=== PATIENT | female | born 1960 ===

== ENCOUNTER 2018-03-31 17:26 | Emergency (ER) | payer OTHER, SELFPAY ==
[2018-03-31 17:36] VITALS: BP 133/90; PULSE 61; RESP 16; TEMP 36.4; O2SAT 95
[2018-03-31 17:46] VITALS: BP 136/76; PULSE 61; RESP 16; TEMP 36.4; O2SAT 95
--- NOTE | 2018-03-31 18:06 | ED_ITS ---
HPI - Fall <ZACH Perez - Last Filed: 03/31/18 22:43> General Chief Complaint: Fall Stated Complaint: Fall / R Knee Pain Time Seen by Provider: 03/31/18 18:01 Source: patient Mode of arrival: EMS Limitations: no limitations History of Present Illness HPI Narrative: 57-year-old female with history of hypertension is a nonsmoker here for complaint of pain to the right knee. She was brought in by ambulance due to the pain to her right knee after ground level fall while she was hiking today. She states that her left foot slid forward causing her right foot to fall behind her. She felt a pop right knee as she fell. She denies any direct impact to the right knee that she knows of. She reports increased pain with motion of the right knee. She denies any head injury. No neck pain. She denies any other injuries or concerns at this timeframe. complaint: fall Related Data Previous Rx's Medication Instructions Recorded olanzapine [Zyprexa] 2.5 mg PO QDAY #30 tab 06/11/16 zolpidem 5 mg PO HS #30 tab 03/18/17 zolpidem 5 mg PO HSP PRN #30 tab 03/18/17 hydrochlorothiazide 25 mg tablet 25 mg PO QDAY #30 tab 03/20/18 lamotrigine 100 mg tablet 100 mg PO QDAY #30 tab 03/20/18 lamotrigine 150 mg tablet 150 mg PO QDAY #30 tab 03/20/18 Allergies Allergy/AdvReac Type Severity Reaction Status Date / Time imipramine [IMIPRAMINE] Allergy Intermediate RASH Unverified 07/10/17 12:38 Review of Systems <ZACH Perez - Last Filed: 03/31/18 22:43> Constitutional Denies chills, Denies fever(s), Denies lethargy and Denies weakness Eyes Denies change in vision, Denies eye discharge, Denies irritation and Denies loss of vision ENT Ears, Nose, Mouth, and Throat: Denies change in voice, Denies neck pain and Denies sore throat Cardiovascular Denies chest pain, Denies irregular heart rhythm, Denies lightheadedness, Denies palpitations, Denies dyspnea, Denies dyspnea on exertion and Denies orthopnea Respiratory Denies cough, Denies dyspnea, Denies dyspnea on exertion and Denies wheezing Gastrointestinal Gastrointestinal: Denies abdominal pain, Denies change in bowel habits, Denies diarrhea, Denies nausea and Denies vomiting Genitourinary Denies hematuria, Denies flank pain, Denies urinary incontinence and Denies urinary urgency Musculoskeletal Denies neck pain Comments: Right knee pain Integumentary/Breasts Denies pruritus, Denies erythema, Denies rash and Denies wounds Neurologic Denies confusion, Denies loss of vision and Denies weakness Psychiatric Denies anxiety, Denies confusion, Denies depression, Denies homicidal ideation and Denies suicidal ideation Endocrine Denies palpitations Hematologic/Lymphatic Denies easy bruising Allergic/Immunologic Denies wheezing Exam <ZACH Perez - Last Filed: 03/31/18 22:43> Initial Vital Signs Initial Vital Signs: Vital Signs Temperature 97.6 F 03/31/18 17:36 Pulse Rate 61 03/31/18 17:36 Respiratory Rate 16 03/31/18 17:36 Blood Pressure 133/90 03/31/18 17:36 Pulse Oximetry 95 03/31/18 17:36 Const General: cooperative and well developed Nutritional Appearance: well nourished Orientation: alert, awake, oriented x3 and not confused [facility] Mouth: oral mucosae normal and moist mucous membranes Eyes Conjunctivae: conjunctivae normal Sclera: sclerae normal Pupils: PERRL EOM: EOM intact bilaterally Resp Effort & Inspection: normal respiratory effort, able to speak in complete sentences, no respiratory distress and no use of accessory muscles Auscultation: clear to auscultation bilaterally, no rales, no rhonchi and no wheezes Cardio Rate: regular rate Rhythm: regular rhythm Heart Sounds: no click, no gallops, no murmurs and no rubs Pulses: normal peripheral pulses Skin General: no rashes or lesions noted, No jaundice and No petechiae Neuro General: alert, oriented x3, gait normal and no focal motor deficits Speech: speech normal Extrem Other: Right knee with slight swelling to the anterior portion. No deformities. No ecchymosis. Distal sensation is intact. Distal range of motion is intact. Distal pulses are intact. Negative anterior posterior drawer sign. Negative varus and valgus stress test <Carlota Parsons MD - Last Filed: 04/01/18 02:50> Initial Vital Signs Initial Vital Signs: Vital Signs Temperature 97.6 F 03/31/18 17:36 Pulse Rate 61 03/31/18 17:36 Respiratory Rate 16 03/31/18 17:36 Blood Pressure 133/90 03/31/18 17:36 Pulse Oximetry 95 03/31/18 17:36 Course <ZACH Perez - Last Filed: 03/31/18 22:43> Orders Ordered: ED Orders 03/31/18 19:33 XR knee RT 3V Stat Vital Signs - 8 hr 03/31/18 19:07 03/31/18 21:41 03/31/18 22:01 Temperature 97.4 F L Pulse Rate 64 60 88 Respiratory Rate 18 15 16 Blood Pressure 136/64 Blood Pressure [Left Arm] 126/75 Blood Pressure [Right Arm] 136/64 Pulse Oximetry 99 96 99 <Carlota Parsons MD - Last Filed: 04/01/18 02:50> Orders Ordered: ED Orders 03/31/18 19:33 XR knee RT 3V Stat Vital Signs - 8 hr 03/31/18 19:07 03/31/18 21:41 03/31/18 22:01 Temperature 97.4 F L Pulse Rate 64 60 88 Respiratory Rate 18 15 16 Blood Pressure 136/64 Blood Pressure [Left Arm] 126/75 Blood Pressure [Right Arm] 136/64 Pulse Oximetry 99 96 99 MDM - Fall <ZACH Perez - Last Filed: 03/31/18 22:43> Imaging Data Right knee : Radiologist's impression: [address] [place] [address] XRay Report Signed Patient: Aspen Arroyo MR#: [id number] : 1960 Acct:[id number] Age/Sex: 57 / F Date of Service: 03/31/18 Loc: ED Accession Number: [id number] Procedure: XR knee RT 3V Ordering Provider: Kd Pierce PROCEDURE: XR KNEE RT 3V INDICATIONS: Ground level fall with pain to right knee TECHNIQUE: 3 views of the knee were acquired. COMPARISON: None. FINDINGS: Bones: No fractures or dislocations. No suspicious bony lesions. Soft tissues: No joint effusion. No suspicious soft tissue calcifications. IMPRESSION: No trauma found. 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 Dictated by: Ken Hewitt M.D. on 03/31/2018 at 20:48 Approved by: Ken Hewitt M.D. on 03/31/2018 at 20:48 [facility] Narrative Medical decision making narrative: X-ray the right knee was obtained with no signs of acute fracture or dislocation. She is placed in a knee immobilizer for comfort and support. Along with crutches for nonweightbearing. Follow up with Orthopedics later this week. May need to have MRI of right knee to rule out soft tissue injury. [id number] Tylenol Motrin as needed for any discomfort. For any worsening symptoms return to the emergency room. Discharge Plan Departure Patient Disposition: Home Clinical Impression: Right knee sprain Discharge Date/Time: 03/31/18 22:00 Interventions: ED Discharge Assessment Last Done: 03/31/18 22:01 Instructions: DI for Knee Sprain Activity Restrictions/Additional Instructions: X-ray the right knee was obtained with no signs of acute fracture or dislocation. You have been placed in a knee immobilizer for comfort and support use as directed with crutches for nonweightbearing. Follow up with Orthopedics later this week. May need to have MRI of right knee to rule out soft tissue injury. [id number] Tylenol Motrin as needed for any discomfort. For any worsening symptoms return to the emergency room. Call Orthopedics at number provided to schedule follow-up appointment. Prescriptions: No Action olanzapine [Zyprexa] 2.5 MG tablet 2.5 mg PO QDAY Qty: 30 RF: 3 zolpidem 5 MG tablet 5 mg PO HSP PRNQty: 30 RF: 1 zolpidem 5 MG tablet 5 mg PO HS Qty: 30 RF: 0 hydrochlorothiazide 25 mg tablet 25 mg PO QDAY Qty: 30 RF: 0 lamotrigine [Lamictal] 100 mg tablet 100 mg PO QDAY Qty: 30 RF: 0 lamotrigine 150 mg tablet 150 mg PO QDAY Qty: 30 RF: 0 Referrals: Joseph Elkins MD [Physician] - Marina Bennett DO [Primary Care Provider] -
[2018-03-31 19:07] VITALS: BP 136/64; PULSE 64; RESP 18; O2SAT 99
--- NOTE | 2018-03-31 19:33 | DI.RAD.S_ITS ---
PROCEDURE: XR KNEE RT 3V INDICATIONS: Ground level fall with pain to right knee TECHNIQUE: 3 views of the knee were acquired. COMPARISON: None. FINDINGS: Bones: No fractures or dislocations. No suspicious bony lesions. Soft tissues: No joint effusion. No suspicious soft tissue calcifications. IMPRESSION: No trauma found. 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 Dictated by: Ken Hewitt M.D. on 03/31/2018 at 20:48 Approved by: Ken Hewitt M.D. on 03/31/2018 at 20:48
[2018-03-31 21:41] VITALS: BP 126/75; PULSE 60; RESP 15; O2SAT 96
[2018-03-31 22:01] VITALS: BP 136/64; PULSE 88; RESP 16; TEMP 36.3; O2SAT 99
== END 2018-03-31 22:00 | disposition home or self-care (01) ==
PROVIDERS: Emergency Provider Nurse Practitioner Family; PCP Family Medicine
DX: S83.91XA Sprain of unspecified site of right knee, initial encounter (principal); W19.XXXA Unspecified fall, initial encounter; Y93.01 Activity, walking, marching and hiking
CPT/HCPCS: 73562; 99283

== ENCOUNTER → 2018-08-22 15:32 | Outpatient (CLI) | payer OTHER, SELFPAY ==
--- NOTE | 2018-08-22 15:35 | DI.RAD.S_ITS ---
PROCEDURE: XR CHEST 2V INDICATIONS: wheezing, shortness of breath. TECHNIQUE: 2 views of the chest were acquired. COMPARISON: [facility], , CHEST 2 VIEW, 01/12/2017, 13:21. FINDINGS: Surgical changes and devices: None. Lungs and pleura: Lungs are clear. No pleural effusions or pneumothorax. Mediastinum: Mediastinal contours are normal. Heart size is normal. Bones and chest wall: No suspicious bony abnormalities. Soft tissues appear unremarkable. IMPRESSION: Normal chest. Dictated by: Hetal French M.D. on 08/22/2018 at 16:35 Approved by: Hetal French M.D. on 08/22/2018 at 16:36
== END ==
PROVIDERS: PCP Family Medicine; Visit Provider Family Medicine
DX: R06.02 Shortness of breath (principal); R06.2 Wheezing
CPT/HCPCS: 71046

== ENCOUNTER → 2018-09-23 15:54 | Outpatient (CLI) | payer OTHER, SELFPAY ==
[2018-09-25 14:44] LABS: Fecal Immunochemical Test NOT DETECTED (NOT DETECTED)
== END ==
PROVIDERS: PCP Family Medicine; Visit Provider Family Medicine
DX: Z12.11 Encounter for screening for malignant neoplasm of colon (principal)
CPT/HCPCS: 82274

== ENCOUNTER → 2018-10-01 08:20 | Outpatient (CLI) | payer OTHER, SELFPAY ==
--- NOTE | 2018-10-01 08:20 | DI.MG.S_ITS ---
BILATERAL DIGITAL SCREENING MAMMOGRAM 3D/2D WITH CAD: 10/01/2018 CLINICAL: Routine screening. Comparison is made to exams dated: 06/07/2014 mammogram and 07/04/2010 [facility] There are scattered fibroglandular elements in both breasts. Current study was also evaluated with a Computer Aided Detection (CAD) system. No significant masses, calcifications, or other findings are seen in either breast. There has been no significant interval change. IMPRESSION: NEGATIVE There is no mammographic evidence of malignancy. A 1 year screening mammogram is recommended. This exam was interpreted at Station ID: [id number]. NOTE: For mammograms, a report in lay terms will be sent to the patient. Approximately 15% of breast malignancies will not be visualized mammographically. In the management of a palpable breast mass, a negative mammogram must not discourage biopsy of a clinically suspicious lesion. Electronically Signed By: Jovan benitez/jemima:10/01/2018 10:33:42 letter sent: Normal Exam ACR BI-RADS Category 1: Negative 3341F
== END ==
PROVIDERS: PCP Family Medicine; Visit Provider Family Medicine
DX: Z12.31 Encounter for screening mammogram for malignant neoplasm of breast (principal)
CPT/HCPCS: 77063; 77067

== ENCOUNTER → 2019-01-30 11:20 | Outpatient (CLI) | payer OTHER, SELFPAY ==
[2019-01-30 12:25] LABS: Hemoglobin A1C% w Est Avg Glu 5.4 % (4.0-6.0)
[2019-01-30 12:37] LABS: Alanine Aminotransferase 24 IU/L (<35); Albumin 4.6 g/dL (3.5-5.0); Albumin Globulin Ratio 1.6 (1.0-2.8); Alkaline Phosphatase 127 U/L (38-126); Aspartate Aminotransferase 38 IU/L (14-36); BUN Creatinine Ratio 17.1 (6-22); Blood Urea Nitrogen 12 mg/dL (7-17); Calcium 9.2 mg/dL (8.4-10.2); Carbon Dioxide 30 mmol/L (22-32); Chloride 99 mmol/L (98-107); Estimated Glomerular Filt Rate > 60.0 mL/min (>60); Globulin 2.9 g/dL (1.7-4.1); Glucose 86 mg/dL (70-100); HEMOLYSIS < 15 (0-50); Potassium 3.4 mmol/L (3.4-5.1); Sodium 139 mmol/L (137-145); Total Protein 7.5 g/dL (6.3-8.2)
[2019-01-30 13:04] LABS: TSH w/ Reflex to FT4 2.58 uIU/mL (0.47-4.68)
== END ==
PROVIDERS: PCP Family Medicine; Visit Provider Family Medicine
DX: R63.5 Abnormal weight gain (principal); I10 Essential (primary) hypertension; R73.03 Prediabetes
CPT/HCPCS: 36415; 80053; 83036; 84443

== ENCOUNTER → 2020-02-15 12:21 | Outpatient (CLI) | payer OTHER, SELFPAY ==
[2020-02-15 13:19] LABS: COVID19 -Nasal RAPID Negative (Negative)
== END ==
PROVIDERS: PCP Family Medicine; Visit Provider Physician Assistant
DX: Z11.59 Encounter for screening for other viral diseases (principal)
CPT/HCPCS: 87635

== ENCOUNTER → 2020-02-29 08:22 | Outpatient (CLI) | payer OTHER, SELFPAY ==
[2020-02-29 09:14] LABS: Add Manual Diff / Slide Review NO; Basophils Absolute Auto 0 /uL (0-100); Eosinophils Absolute Auto 200 /uL (0-450); Eosinophils Percent Auto 4.8 % (2-4); Hematocrit 40.7 % (36-46); Hemoglobin 13.3 g/dL (12.0-16.0); Lymphocytes Absolute Auto 1500 /uL (1100-4500); Lymphocytes Percent Auto 33.8 % (25-40); Mean Corpuscular HGB Conc 32.7 % (30-36); Mean Corpuscular Volume 91.7 fL (80-100); Monocytes Absolute Auto 300 /uL (0-900); Monocytes Percent Auto 7.7 % (3-14); Neutrophils Absolute Auto 2400 /uL (1500-7000); Neutrophils Percent Auto 52.7 % (50-75); Platelet Count 226 X10^3/uL (150-400); Red Blood Cell Count 4.44 X10^6/uL (4.0-5.2); Red Cell Distribution Width 12.9 % (11.6-14.8); White Blood Cell Count 4.5 X10^3/uL (4.5-11.0)
[2020-02-29 09:29] LABS: Alanine Aminotransferase 24 IU/L (<35); Albumin Globulin Ratio 1.3 (1.0-2.8); Alkaline Phosphatase 129 U/L (38-126); Aspartate Aminotransferase 35 IU/L (14-36); BUN Creatinine Ratio 13.2 (6-22); Bilirubin Total 0.7 mg/dL (0.2-1.3); Blood Urea Nitrogen 10 mg/dL (7-17); Calcium 9.4 mg/dL (8.4-10.2); Carbon Dioxide 33 mmol/L (22-32); Chloride 104 mmol/L (98-107); Cholesterol 226 mg/dL (140-199); Estimated Glomerular Filt Rate > 60.0 mL/min (>60); Glucose 102 mg/dL (70-100); HDL Cholesterol 90 mg/dL (40-60); HEMOLYSIS < 15 (0-50); LDL Cholesterol Calculated 122 mg/dL (<100); Sodium 138 mmol/L (137-145); Triglycerides 72 mg/dL (35-150)
[2020-02-29 10:27] LABS: Thyroid Stimulating Hormone 3.01 uIU/mL (0.47-4.68)
== END ==
PROVIDERS: PCP Family Medicine; Referring Provider Family Medicine; Visit Provider Family Medicine
DX: E66.3 Overweight (principal); F31.81 Bipolar II disorder; I10 Essential (primary) hypertension
CPT/HCPCS: 36415; 80053; 80061; 84443; 85025

== ENCOUNTER → 2020-06-23 10:40 | Outpatient (CLI) | payer OTHER, SELFPAY ==
--- NOTE | 2020-06-23 10:41 | DI.RAD.S_ITS ---
PROCEDURE: XR CERVICAL SPINE 2V OR 3V INDICATIONS: right hand numbness TECHNIQUE: 3 view(s) of the cervical spine were acquired. COMPARISON: None. FINDINGS: Bones: No fracture. Grade 1 retrolisthesis of C4 on C5. Multilevel degenerative endplate sclerosis and spurring. Diffuse facet arthropathy. Severe narrowing of the C4-C5 and C6-C7 disc space. Soft tissues: No prevertebral soft tissue swelling. IMPRESSION: Multilevel cervical spondylosis and facet arthropathy as above. Grade 1 retrolisthesis of C4 on C5. Dictated by: Regis Barahona M.D. on 06/23/2020 at 12:12 Approved by: Regis Barahona M.D. on 06/23/2020 at 12:21
== END ==
PROVIDERS: PCP Family Medicine; Referring Provider Family Medicine; Visit Provider Family Medicine
DX: M47.22 Other spondylosis with radiculopathy, cervical region (principal); M43.12 Spondylolisthesis, cervical region
CPT/HCPCS: 72040

== ENCOUNTER → 2021-06-09 08:07 | Outpatient (CLI) | payer OTHER, SELFPAY ==
[2021-06-09 09:45] LABS: Add Manual Diff / Slide Review NO; Basophils Absolute Auto 100 /uL (0-100); Basophils Percent Auto 1.2 % (0-2); Eosinophils Absolute Auto 200 /uL (0-450); Eosinophils Percent Auto 4.8 % (2-4); Hematocrit 41.5 % (36-46); Hemoglobin 13.5 g/dL (12.0-16.0); Lymphocytes Absolute Auto 1500 /uL (1100-4500); Lymphocytes Percent Auto 33.4 % (25-40); Mean Corpuscular HGB Conc 32.5 % (30-36); Mean Corpuscular Hemoglobin 29.6 PG (26-34); Mean Corpuscular Volume 91.2 fL (80-100); Monocytes Absolute Auto 400 /uL (0-900); Monocytes Percent Auto 7.9 % (3-14); Neutrophils Absolute Auto 2400 /uL (1500-7000); Neutrophils Percent Auto 52.7 % (50-75); Platelet Count 254 X10^3/uL (150-400); Red Blood Cell Count 4.55 X10^6/uL (4.0-5.2); Red Cell Distribution Width 13.1 % (11.6-14.8); White Blood Cell Count 4.6 X10^3/uL (4.5-11.0)
[2021-06-09 10:00] LABS: Hemoglobin A1C% w Est Avg Glu 5.7 % (4.0-6.0)
[2021-06-09 10:02] LABS: Alanine Aminotransferase 21 IU/L (<35); Albumin 4.5 g/dL (3.5-5.0); Albumin Globulin Ratio 1.4 (1.0-2.8); Alkaline Phosphatase 114 U/L (38-126); Aspartate Aminotransferase 35 IU/L (14-36); BUN Creatinine Ratio 13.4 (6-22); Bilirubin Total 0.9 mg/dL (0.2-1.3); Blood Urea Nitrogen 11 mg/dL (7-17); C-Reactive Protein Quant < 0.5 mg/dL (<1.0); Calcium 9.5 mg/dL (8.4-10.2); Carbon Dioxide 32 mmol/L (22-32); Chloride 100 mmol/L (98-107); Cholesterol 250 mg/dL (140-199); Estimated Glomerular Filt Rate > 60.0 mL/min (>60); Globulin 3.2 g/dL (1.7-4.1); Glucose 97 mg/dL (70-100); HDL Cholesterol 92 mg/dL (40-60); HEMOLYSIS < 15 (0-50); LDL Cholesterol Calculated 143 mg/dL (<100); Potassium 3.6 mmol/L (3.4-5.1); Sodium 138 mmol/L (137-145); Total Protein 7.7 g/dL (6.3-8.2); Triglycerides 76 mg/dL (35-150)
[2021-06-09 10:04] LABS: Rheumatoid Factor < 8.6 IU/mL (<12.0)
[2021-06-09 11:09] LABS: TSH w/ Reflex to FT4 2.88 uIU/mL (0.47-4.68)
== END ==
PROVIDERS: PCP Family Medicine; Referring Provider Family Medicine; Visit Provider Family Medicine
DX: M79.641 Pain in right hand (principal); M79.642 Pain in left hand; Z51.81 Encounter for therapeutic drug level monitoring; I10 Essential (primary) hypertension; Z83.3 Family history of diabetes mellitus; E78.5 Hyperlipidemia, unspecified; R53.83 Other fatigue
CPT/HCPCS: 36415; 80053; 80061; 83036; 84443; 85025; 86140; 86430

== ENCOUNTER → 2021-06-15 09:29 | Outpatient (CLI) | payer OTHER, SELFPAY ==
[2021-06-16 12:09] LABS: Fecal Immunochemical Test Negative (Negative)
== END ==
PROVIDERS: PCP Family Medicine; Referring Provider Family Medicine; Visit Provider Family Medicine
DX: Z12.11 Encounter for screening for malignant neoplasm of colon (principal)
CPT/HCPCS: 82274

== ENCOUNTER → 2022-01-31 15:31 | Outpatient (CLI) | payer OTHER, SELFPAY ==
--- NOTE | 2022-01-31 15:33 | DI.MG.S_ITS ---
BILATERAL DIGITAL SCREENING MAMMOGRAM 3D/2D WITH CAD: 01/31/2022 CLINICAL: Routine screening. Comparison is made to exams dated: 10/01/2018 mammogram - [facility], 06/07/2014 mammogram, and 07/04/2010 mammogram - [facility]. There are scattered areas of fibroglandular density in both breasts (category b / 25%-50% glandular tissue). Current study was also evaluated with a Computer Aided Detection (CAD) system. No significant masses, calcifications, or other findings are seen in either breast. There has been no significant interval change. IMPRESSION: NEGATIVE There is no mammographic evidence of malignancy. A 1 year screening mammogram is recommended. Based on the Tyrer Cuzick model (a risk assessment model) the patient's lifetime risk is 10.1% and her 10 year risk is 3.9%. According to the ACR, ACS, and NCCN guidelines, an annual breast MRI exam along with mammogram is recommended if the patient's lifetime risk is 20% or greater. This exam was interpreted at Station ID: [id number]. NOTE: For mammograms, a report in lay terms will be sent to the patient. Approximately 15% of breast malignancies will not be visualized mammographically. In the management of a palpable breast mass, a negative mammogram must not discourage biopsy of a clinically suspicious lesion. Electronically Signed By: Jossue Lamas M.D., jr/jemima:02/01/2022 14:10:36 letter sent: Normal Exam ACR BI-RADS Category 1: Negative [id number]
== END ==
PROVIDERS: PCP Family Medicine; Referring Provider Family Medicine; Visit Provider Family Medicine
DX: Z12.31 Encounter for screening mammogram for malignant neoplasm of breast (principal)
CPT/HCPCS: 77063; 77067

== ENCOUNTER → 2022-06-19 08:41 | Outpatient (CLI) | payer OTHER, SELFPAY ==
[2022-06-19 10:50] LABS: Alanine Aminotransferase 22 IU/L (<35); Albumin 3.9 g/dL (3.5-5.0); Albumin Globulin Ratio 1.4 (1.0-2.8); Alkaline Phosphatase 141 U/L (38-126); Aspartate Aminotransferase 29 IU/L (14-36); BUN Creatinine Ratio 12.2 (6-22); Bilirubin Total 0.8 mg/dL (0.2-1.3); Blood Urea Nitrogen 9 mg/dL (7-17); Carbon Dioxide 29 mmol/L (22-32); Chloride 100 mmol/L (98-107); Cholesterol 237 mg/dL (140-199); Estimated Glomerular Filt Rate > 60 mL/min (>60); Globulin 2.8 g/dL (1.7-4.1); Glucose 90 mg/dL (70-100); HDL Cholesterol 100 mg/dL (40-60); HEMOLYSIS < 15 (0-50); LDL Cholesterol Calculated 123 mg/dL (<100); Potassium 3.8 mmol/L (3.4-5.1); Sodium 137 mmol/L (137-145); Total Protein 6.7 g/dL (6.3-8.2); Triglycerides 69 mg/dL (35-150)
[2022-06-20 10:43] LABS: Fecal Immunochemical Test Negative (Negative)
== END ==
PROVIDERS: PCP Family Medicine; Referring Provider Family Medicine; Visit Provider Family Medicine
DX: Z12.11 Encounter for screening for malignant neoplasm of colon (principal); I10 Essential (primary) hypertension
CPT/HCPCS: 36415; 80053; 80061; 82274

== ENCOUNTER → 2022-07-06 07:55 | Outpatient (CLI) | payer OTHER, SELFPAY ==
--- NOTE | 2022-07-06 07:57 | DI.US.S_ITS ---
PROCEDURE: US EXTREMELY NONVASC UPPER RT INDICATIONS: RIGHT ELBOW MASS TECHNIQUE: Real-time scanning was performed of the right elbow , with image documentation. COMPARISON: None. FINDINGS: Multiple grayscale color Doppler images of the right posterior elbow at the area of palpable concern were acquired. There is a heterogeneous, hyperechoic mass with internal vascularity measuring 1.6 x 0.5 x 0.9 cm. It is oriented parallel to the skin surface. No evidence to suggest invasion into the underlying osseous structures or musculature. No abnormal fluid collection seen. IMPRESSION: A 1.6 cm hyperechoic, vascular soft tissue mass noted over the posterior aspect of the right elbow. This is nonspecific and etiologies would include both benign and malignant etiologies. Recommend clinical correlation and if indicated, soft tissue MRI could be performed for further assessment. Dictated by: Jovan Bond M.D. on 07/06/2022 at 9:16 Approved by: Jovan Bond M.D. on 07/06/2022 at 9:20
== END ==
PROVIDERS: PCP Family Medicine; Referring Provider Surgery; Visit Provider Surgery
DX: R22.31 Localized swelling, mass and lump, right upper limb (principal)
CPT/HCPCS: 76882

== ENCOUNTER → 2023-04-28 11:32 | Outpatient (CLI) | payer OTHER, SELFPAY ==
--- NOTE | 2023-04-28 11:34 | DI.RAD.S_ITS ---
PROCEDURE: XR RIBS LT MIN 3V W CXR1V INDICATIONS: left lower anterior rib pain after fall TECHNIQUE: 2 views of the ribs were acquired, along with a single view chest. COMPARISON: None. FINDINGS: Surgical changes and devices: None. Bones and chest wall: A marker is placed upon the area of clinical concern. Within this region, no displaced rib fracture or other significant rib abnormality can be seen. No rib fractures are seen elsewhere. No suspicious bony lesions. Age-appropriate bony degenerative changes are seen. Overlying soft tissues appear unremarkable. Lungs and pleura: No pleural effusions or pneumothorax. Lungs appear clear. Mediastinum: The cardiac contours are within normal limits. The aorta demonstrates calcification and tortuosity. IMPRESSION: No displaced rib fracture or pneumothorax. Dictated by: Santos Garcia M.D. on 04/28/2023 at 11:43 Approved by: Santos Garcia M.D. on 04/28/2023 at 11:43
== END ==
PROVIDERS: Referring Provider Physician Assistant; Visit Provider Physician Assistant
DX: R07.81 Pleurodynia (principal)
CPT/HCPCS: 71101

== ENCOUNTER → 2023-07-08 09:22 | Outpatient (CLI) | payer OTHER, SELFPAY ==
[2023-07-08 11:05] LABS: Hemoglobin A1C% w Est Avg Glu 5.5 % (4.0-6.0)
[2023-07-08 11:06] LABS: Alanine Aminotransferase 18 IU/L (<35); Albumin Globulin Ratio 1.3 (1.0-2.8); Alkaline Phosphatase 124 U/L (38-126); Aspartate Aminotransferase 27 IU/L (14-36); BUN Creatinine Ratio 18.9 (6-22); Bilirubin Total 0.9 mg/dL (0.2-1.3); Blood Urea Nitrogen 14 mg/dL (7-17); Calcium 9.7 mg/dL (8.4-10.2); Carbon Dioxide 31 mmol/L (22-32); Chloride 103 mmol/L (98-107); Cholesterol 245 mg/dL (140-199); Estimated Glomerular Filt Rate > 60 mL/min (>60); Glucose 93 mg/dL (80-110); HDL Cholesterol 87 mg/dL (40-60); HEMOLYSIS < 15 (0-50); LDL Cholesterol Calculated 140 mg/dL (<100); Potassium 3.9 mmol/L (3.4-5.1); Sodium 137 mmol/L (137-145); Triglycerides 88 mg/dL (35-150)
== END ==
PROVIDERS: PCP Family Medicine; Referring Provider Family Medicine; Visit Provider Family Medicine
DX: F31.81 Bipolar II disorder (principal); I10 Essential (primary) hypertension; E78.5 Hyperlipidemia, unspecified
CPT/HCPCS: 36415; 80053; 80061; 83036

== ENCOUNTER → 2023-08-30 12:53 | Outpatient (CLI) | payer OTHER, SELFPAY ==
--- NOTE | 2023-08-30 12:53 | DI.US.S_ITS ---
PROCEDURE: US CAROTID DOPPLER BI INDICATIONS: Episode of dysarthria, elevated cholesterol, FH stroke TECHNIQUE: Color and pulse Doppler interrogation was performed of both carotid systems, with image documentation and velocity measurements. COMPARISON: None. FINDINGS: Stenosis calculations are based on SRU (Society of Radiologists in Ultrasound) criteria. Right side: Brachial blood pressure: 113/71 mm Hg. Common carotid artery peak systolic velocity: 88 cm/sec. Internal carotid artery peak systolic velocity: 89 cm/sec. Internal carotid artery end diastolic velocity: 36 cm/sec. External carotid artery peak systolic velocity: 105 cm/sec. ICA/CCA peak systolic ratio: 1.01 . Mistry scale imaging description: No significant atherosclerotic plaques Percent internal carotid artery stenosis: No significant stenosis . Vertebral artery: Flow direction is antegrade. Left side: Brachial blood pressure: 111/69 mm Hg. Common carotid artery peak systolic velocity: 125 cm/sec. Internal carotid artery peak systolic velocity: 88 cm/sec. Internal carotid artery end diastolic velocity: 32 cm/sec. External carotid artery peak systolic velocity: 115 cm/sec. ICA/CCA peak systolic ratio: 0.70 . Mistry scale imaging description: No significant atherosclerotic plaques. Percent internal carotid artery stenosis: No significant stenosis . Vertebral artery: Flow direction is antegrade. IMPRESSION: No significant stenosis of the bilateral internal carotid arteries. Dictated by: Vic Mcbride M.D. on 08/30/2023 at 14:57 Approved by: Vic Mcbride M.D. on 08/30/2023 at 14:59
--- NOTE | 2023-08-30 12:53 | DI.RAD.S_ITS ---
PROCEDURE: XR CERVICAL SPINE 4V OR 5V INDICATIONS: Cervicalgia TECHNIQUE: 5 views of the cervical spine were acquired. COMPARISON: [facility], CR, XR CERVICAL SPINE 2V OR 3V, 06/23/2020, 10:40. FINDINGS: Bones: No fractures or dislocations to the C7 level. Straightening of the normal cervical lordosis. Mild anterolisthesis of C3 on C4 and retrolisthesis of C4 on C5. There are multilevel degenerative changes of the cervical spine with facet and uncovertebral arthropathy, disc height loss with degenerative endplate changes and spurring. This is most severe at C4-C5 and C6-C7. Diffusely decreased osseous mineralization. No suspicious bony lesions. There is limited range of motion between flexion and extension, with preserved bony alignment. Soft tissues: Prevertebral soft tissues are normal in thickness. IMPRESSION: Multilevel degenerative changes of the cervical spine with limited range of motion. This is most severe at C4-C5 and C6-C7. Dictated by: Vic Mcbride M.D. on 08/30/2023 at 13:26 Approved by: Vic Mcbride M.D. on 08/30/2023 at 13:27
== END ==
PROVIDERS: PCP Family Medicine; Referring Provider Physician Assistant Surgical; Visit Provider Physician Assistant Surgical
DX: M47.22 Other spondylosis with radiculopathy, cervical region (principal); M54.2 Cervicalgia; R47.1 Dysarthria and anarthria; E78.5 Hyperlipidemia, unspecified; Z82.3 Family history of stroke
CPT/HCPCS: 72050; 93880

== ENCOUNTER → 2023-11-27 07:59 | Outpatient (CLI) | payer OTHER, SELFPAY ==
[2023-11-27 09:45] LABS: Cholesterol 260 mg/dL (140-199); HDL Cholesterol 83 mg/dL (40-60); LDL Cholesterol Calculated 157 mg/dL (<100); Triglycerides 99 mg/dL (35-150)
== END ==
PROVIDERS: PCP Family Medicine; Referring Provider Family Medicine; Visit Provider Family Medicine
DX: E78.2 Mixed hyperlipidemia (principal)
CPT/HCPCS: 36415; 80061

== ENCOUNTER → 2024-04-02 08:23 | Outpatient (CLI) | payer OTHER, SELFPAY ==
[2024-04-02 09:45] LABS: Cholesterol 181 mg/dL (140-199); Triglycerides 55 mg/dL (35-150)
[2024-04-02 09:55] LABS: HDL Cholesterol 115 mg/dL (40-60); LDL Cholesterol Calculated 55 mg/dL (<100)
== END ==
PROVIDERS: PCP Family Medicine; Referring Provider Family Medicine; Visit Provider Family Medicine
DX: E78.2 Mixed hyperlipidemia (principal)
CPT/HCPCS: 36415; 80061

== ENCOUNTER → 2024-06-22 | Outpatient (CLI) | payer OTHER, SELFPAY ==
--- NOTE | 2024-06-22 17:06 | DI.MG.S_ITS ---
MM screening mammo BI: 06/22/2024. BI-RADS: 1 CLINICAL: 63-year old female for bilateral screening mammogram. Tyrer-Cuzick lifetime risk of 9.0%. No personal or first-degree family history of breast cancer. PRIOR EXAMS 01/31/2022, 10/01/2018. MAMMOGRAPHY TECHNIQUE: 2D and 3D (tomosynthesis) digital mammographic views obtained, with additional images as needed for full coverage. Current study was also evaluated with a Computer Aided Detection (CAD) system. DENSITY B. There are scattered areas of fibroglandular density. MAMMOGRAPHY FINDINGS Bilateral: No suspicious mass, asymmetry, microcalcification, or other abnormality seen. No significant change from comparison. IMPRESSION: * No evidence of malignancy. RECOMMENDATIONS Bilateral * Annual screening mammography. OVERALL ASSESSMENT CATEGORY BI-RADS-1: Negative. The [employer] recommends annual screening mammography beginning at age 40 for women with average risk of breast cancer. ELECTRONICALLY SIGNED: Becca Laguna M.D. on 06/23/2024 at 12:11:14 PM PT Interpreting Station ID: [id number]
== END ==
PROVIDERS: Family Provider Family Medicine; PCP Family Medicine; Referring Provider Family Medicine; Visit Provider Family Medicine
DX: Z12.31 Encounter for screening mammogram for malignant neoplasm of breast (principal)
CPT/HCPCS: 77063; 77067

== ENCOUNTER 2024-06-29 09:00 | Outpatient (RCR) | payer OTHER, SELFPAY ==
--- NOTE | 2024-05-25 18:38 | PT.OIE ---
Current Diagnoses Stiffness of unspecified hip, not elsewhere classified (05/25/24) Unspecified dyspareunia (05/25/24) Abnormal posture (05/25/24) Unspecified urinary incontinence (05/25/24) Past Medical History (Last Updated 04/10/24 @ 17:04 by Emilia Alanis MD) Bipolar II disorder (~2003) Dyspareunia Fibroids Hyperlipidemia Knee pain Postmenopausal atrophic vaginitis Prediabetes Recurrent sinusitis Shoulder pain Urinary leakage Past Surgical History (Last Reviewed 07/04/22 @ 09:36 by Mercedez Garcia RN) Anesthesia History of knee surgery History of repair of ACL History of surgery Tear meniscus knee Visit Care Team Role Provider Type Emilia Alanis MD Attending Provider Physician Family Provider Primary Care Provider Referring Provider Specialty: Family Practice ACADEMIC ASSOCIATE Address: [address] [place] [address], [facility] Fax: Email: [email or web address] Physical Therapy Initial Evaluation PT-OP-A Visit Information Start: 05/24/24 19:28 Freq: Status: Active Protocol: Document 05/25/24 08:00 LRN (Rec: 05/25/24 09:03 LRN [id number]) Out-Patient Physical Therapy Visit Information Visit Information Visit Type Initial Evaluation Visit Start Time 08:15 Visit Stop Time 09:02 Visit Number 1 Evaluation Information Evaluation Date 05/25/24 Precautions Precautions Knee surgeries, (R Quad tendon rupture - 2019 repair). Pelvic instability treated @ [facility] point, Chiropractor treatments - 2019 or 2020 for 6 months rehab. PT-OP-B Current Condition Start: 05/24/24 19:28 Freq: Status: Active Protocol: Document 05/25/24 08:00 LRN (Rec: 05/25/24 09:03 LRN [id number]) Current Condition History of Current Condition Onset Date 9 months ago Current Complaints Urinary leakage with an urge and occasionally with sneeze. History of Current Condition Several months ago onset of incontinence, used to be with sneezing, but now has urgent onset to urinate with leakage getting up in the middle of the night or walking to the bathroom. Her triggers are running water, washing of hands. Pt reports pain with intercourse. Pt moved from [place] 8 yrs ago. She does pilates once a week with online instructors in [place]. States she does a kegels with inhale, and does Urethral, vaginal and anal kegels. Pt is with no children, no pregnancies. Prior Treatments and Tests None. Treatment Goals Patient/Caregiver Goals Pt goals: Hold her urine and quit wearing pads all the time. Personal Factors Other Personal Factors That May Effect Hx of R Quad tendon re- Therapy/Recovery attached, L ACL rpr - in her 30's, arthritis of knees, controlled HBP, does pilates 1x/wk. . PT-OP-C Subjective Start: 05/24/24 19:28 Freq: Status: Active Protocol: Document 05/25/24 08:00 LRN (Rec: 05/25/24 09:03 LRN [id number]) Patient Questionnaires Pelvic Pain and Urgency/Frequency Patient Symptom Scale Pelvic Pain Score 15 OP-PT Pain Assessment Pain Assessment Grid Paper Pain Assessment Grid Completed Yes Location L side of neck Pain Location Details L lateral neck Intensity 1 Scale Used Numeric (0 - 10) PT-OP-I Pelvic Floor Start: 05/24/24 19:28 Freq: Status: Active Protocol: Document 05/25/24 08:00 LRN (Rec: 05/25/24 09:03 LRN [id number]) Pelvic Floor Assessment Urine Pelvic Floor Surgery No Urinary Symptoms Urge Sensation Leakage Cause Sneeze,Urge Other Leakage Causes Small with sneeze. Large if wait too long. Leaks Per Day 0-4 Voiding Frequency every other hour (~8-10x/day) Nocturia 1-2x/night Pads Used In 24 Hours 1 Poise pad Urine Pad Type Panty Liner Bowel Bowel Symptoms Uncontrolled Flatulence Bowel Movement Frequency 1/day Person Stool Chart Comments Type 3,4 Pelvic Clock Pelvic Clock 3-6 Tightness Pelvic Clock 6-9 Tightness Prolapse Urethrocele Grade 2 Perineal Descent Resting Absent Bearing Present Contraction Ability Manual Muscle Testing Left 2 Manual Muscle Testing Right 2 Manual Muscle Testing Anterior 1 Manual Muscle Testing Posterior 2 Muscle Endurance (Seconds) 3 Number of Quick Contractions In 10 5 Seconds Comments Pelvic Floor Comments Weak contraction with slow release. Hyper tonicity 3-9 of PF clock. Pt reporting pain with intercourse. PT-OP-J Posture/Palpation/Skin Start: 05/24/24 19:28 Freq: Status: Active Protocol: Document 05/25/24 08:00 LRN (Rec: 05/25/24 09:03 LRN [id number]) Posture Evaluation Position Standing Thorax Posture Neutral L-Spine Posture Shifted Left Shoulder Posture (L) Elevated Arm Posture (L) Internally Rotated,(R) Internally Rotated Pelvis Posture (R) Rotated Anterior,(L) PSIS Posterior,(L) ASIS Posterior,( R) ASIS Inferior Knee Posture (L) Genu Valgus,(R) Genu Valgus Foot Arch (L) High Arch,(R) High Arch Comments Posture Comments Valgus L>R, R hammertoe, R arch higher than L, head shifted L, Dowagers Hump, Sacrum in extension (flattened ), L innominate in neutral. PT-OP-K Range of Motion Start: 05/24/24 19:28 Freq: Status: Active Protocol: Document 05/25/24 08:00 LRN (Rec: 05/25/24 09:03 LRN [id number]) Lumbar Spine Range of Motion Lumbar Spine Active Degrees Testing Position Standing Flexion 60 Extension 20 Rotation Left 15 Rotation Right 10 Lateral Flexion Left 15 Lateral Flexion Right 10 Hip Goniometric Range of Motion Hip Right Passive Testing Position Supine Internal Rotation 30 External Rotation 30 Left Passive Testing Position Supine Internal Rotation 20 External Rotation 30 PT-OP-M Strength Start: 05/24/24 19:28 Freq: Status: Active Protocol: Document 05/25/24 08:00 LRN (Rec: 05/25/24 09:03 LRN [id number]) Trunk Strength Trunk Manual Muscle Testing Core Stabilization Lacks mildly rotational strength Hip Strength Hip Manual Muscle Testing Right Extension (S1) 3 Fair Comments Strength is 5/5 except as indicated above. Left Extension (S1) 3 Fair External Rotation 4 Good Comments Strength is 5/5 except as indicated above. PT-OP-Q Treatments Start: 05/24/24 19:28 Freq: Status: Active Protocol: Document 05/25/24 08:00 LRN (Rec: 05/25/24 09:03 LRN [id number]) Self-Care/Home Management Treatment Education Other Education Discussed results of evaluation, goals, treatment, and plan of care (POC) with pt , attendance/cx/dns policy; pt agreeable to evaluation, goals, treatment, attendance/ cx/dns policy and POC. Pt educated in use of Bladder Diary and I/S in tracking for 1 week. PT-OP-T Assessment and Plan Start: 05/24/24 19:28 Freq: Status: Active Protocol: Document 05/25/24 08:00 LRN (Rec: 05/25/24 09:03 LRN [id number]) Physical Therapy Assessment Rehab Potential Rehabilitation Potential Good Evaluation Complexity Number of Personal Factors/Comorbidities 1-2 Number of Body Systems Impaired 4 or More Clinical Presentation at Evaluation Evolving Impairments Impairments Activity Tolerance,Posture,ROM ,Strength Other Impairments PF ms tightness. Goals Three Impairment Stress urinary incontinence due to tight PF Short Term Goal (STG) Pt will be able to relax her PF with use of deep breathing and PF stretching (if needed) to decrease pain with intercourse. Longterm Goal (LTG) No urinary leakage with a sneeze. LTG Duration 08/07/24 Two Impairment Urge urinary incontinence at nighttime and w/strong urge Short Term Goal (STG) Pt will be educated in urge deference technique and will be able to maintain continence with a strong urge from triggers of running water or washing hands. STG Duration 06/04/24 Longterm Goal (LTG) Pt will be able to remain continent while walking to the bathroom with an urge and at nighttime to eliminate the use of incontinence pads. LTG Duration 08/07/24 One Impairment Pt lacks appropriate self care HEP. Short Term Goal (STG) Education and pt able to demonstrate proper methods for coordinating breathing with exercise and PF contractions. STG Duration 06/25/24 Longterm Goal (LTG) Pt will be independent with a self care HEP of PF stretching & relaxation, as needed PF strengthening & core rotational strengthening and hip ROM (ER/IR/PSLR) exercises . LTG Duration 08/07/24 Assessment Summary Assessment Pt is a 63 yo female with mixed urinary incontinece, most likely due to tightness of PF/hip (rotational, Hamstring) muscles and possibly improper fluid management. The pt will benefit from skilled physical therapy for PF rehabilitation of pt education, manual therapy, therapeutic ex, therapeutic activity, modalities (Biofeedback, E- stim), PF/core/hip ex's and neuro reeducation for PF relaxation and coordination of PF contract/relax in isolation of abdominal muscles . Physical Therapy Plan Frequency and Duration Frequency of Treatment 1x/Week Duration of treatment (weeks) 10 Plan of Care Start Date 05/25/24 Plan of Care End Date 08/07/24 Therapeutic Interventions Therapeutic Interventions Home Exercise Program,Manual Therapy,Neuromuscular Re- education,Self-Care/Home Management,Soft Tissue Mobilization,Therapeutic Activities,Therapeutic Exercises Modalities Biofeedback,Electric Stimulation Next Visit Focus/Plan Next Note Type Treatment Note Next Visit Plan Next: Review Bladder dairy and discuss fluid intake (AM/ PM), urinary voiding frequency , & nighttime voiding frequency, times between voids and voiding times, types of intake fluids, bladder irritants, and ?just in case? voiding with recommendations as appropriate. PF Vemg assessment and relaxation training. Education: PF relaxation, wand stretching and stretch ex 's. Coordination of proper breaths with ADLs, transfers, body mechanics and exercise. Hip stretch (IR L>R, ER dione). PF relaxation, f/b strengthening. POC: Pt education, Manual therapy. Biofeedback with vaginal sensor for PF awareness and relaxation, Therapeutic Exercises, Therapeutic Activities, Neuromuscular Reeducation.
--- NOTE | 2024-05-25 18:38 | PT.OPPOC ---
Physical, Occupational & Speech Therapy At [facility] Current Diagnoses Stiffness of unspecified hip, not elsewhere classified (05/25/24) Unspecified dyspareunia (05/25/24) Abnormal posture (05/25/24) Unspecified urinary incontinence (05/25/24) Visit Care Team Role Provider Type Emilia Alanis MD Attending Provider Physician Family Provider Primary Care Provider Referring Provider Specialty: Family Practice INTERNATIONAL LOGISTICS COORDINATOR Address: [address] [place] [address], [facility] Fax: Email: [email or web address] Plan Of Care PT-OP-B Current Condition Start: 05/24/24 19:28 Freq: Status: Active Protocol: Document 05/25/24 08:00 LRN (Rec: 05/25/24 09:03 LRN [id number]) Current Condition History of Current Condition Onset Date 9 months ago Current Complaints Urinary leakage with an urge and occasionally with sneeze. History of Current Condition Several months ago onset of incontinence, used to be with sneezing, but now has urgent onset to urinate with leakage getting up in the middle of the night or walking to the bathroom. Her triggers are running water, washing of hands. Pt reports pain with intercourse. Pt moved from [place] 8 yrs ago. She does pilates once a week with online instructors in [place]. States she does a kegels with inhale, and does Urethral, vaginal and anal kegels. Pt is with no children, no pregnancies. Prior Treatments and Tests None. Treatment Goals Patient/Caregiver Goals Pt goals: Hold her urine and quit wearing pads all the time. Personal Factors Other Personal Factors That May Effect Hx of R Quad tendon re- Therapy/Recovery attached, L ACL rpr - in her 30's, arthritis of knees, controlled HBP, does pilates 1x/wk. . PT-OP-T Assessment and Plan Start: 05/24/24 19:28 Freq: Status: Active Protocol: Document 05/25/24 08:00 LRN (Rec: 05/25/24 09:03 LRN [id number]) Physical Therapy Assessment Rehab Potential Rehabilitation Potential Good Evaluation Complexity Number of Personal Factors/Comorbidities 1-2 Number of Body Systems Impaired 4 or More Clinical Presentation at Evaluation Evolving Impairments Impairments Activity Tolerance,Posture,ROM ,Strength Other Impairments PF ms tightness. Goals Three Impairment Stress urinary incontinence due to tight PF Short Term Goal (STG) Pt will be able to relax her PF with use of deep breathing and PF stretching (if needed) to decrease pain with intercourse. Halfway Goal (LTG) No urinary leakage with a sneeze. LTG Duration 08/07/24 Two Impairment Urge urinary incontinence at nighttime and w/strong urge Short Term Goal (STG) Pt will be educated in urge deference technique and will be able to maintain continence with a strong urge from triggers of running water or washing hands. STG Duration 06/04/24 Halfway Goal (LTG) Pt will be able to remain continent while walking to the bathroom with an urge and at nighttime to eliminate the use of incontinence pads. LTG Duration 08/07/24 One Impairment Pt lacks appropriate self care HEP. Short Term Goal (STG) Education and pt able to demonstrate proper methods for coordinating breathing with exercise and PF contractions. STG Duration 06/25/24 Halfway Goal (LTG) Pt will be independent with a self care HEP of PF stretching & relaxation, as needed PF strengthening & core rotational strengthening and hip ROM (ER/IR/PSLR) exercises . LTG Duration 08/07/24 Assessment Summary Assessment Pt is a 63 yo female with mixed urinary incontinece, most likely due to tightness of PF/hip (rotational, Hamstring) muscles and possibly improper fluid management. The pt will benefit from skilled physical therapy for PF rehabilitation of pt education, manual therapy, therapeutic ex, therapeutic activity, modalities (Biofeedback, E- stim), PF/core/hip ex's and neuro reeducation for PF relaxation and coordination of PF contract/relax in isolation of abdominal muscles . Physical Therapy Plan Frequency and Duration Frequency of Treatment 1x/Week Duration of treatment (weeks) 10 Plan of Care Start Date 05/25/24 Plan of Care End Date 08/07/24 Therapeutic Interventions Therapeutic Interventions Home Exercise Program,Manual Therapy,Neuromuscular Re- education,Self-Care/Home Management,Soft Tissue Mobilization,Therapeutic Activities,Therapeutic Exercises Modalities Biofeedback,Electric Stimulation Next Visit Focus/Plan Next Note Type Treatment Note Next Visit Plan Next: Review Bladder dairy and discuss fluid intake (AM/ PM), urinary voiding frequency , & nighttime voiding frequency, times between voids and voiding times, types of intake fluids, bladder irritants, and ?just in case? voiding with recommendations as appropriate. PF Vemg assessment and relaxation training. Education: PF relaxation, wand stretching and stretch ex 's. Coordination of proper breaths with ADLs, transfers, body mechanics and exercise. Hip stretch (IR L>R, ER dione). PF relaxation, f/b strengthening. POC: Pt education, Manual therapy. Biofeedback with vaginal sensor for PF awareness and relaxation, Therapeutic Exercises, Therapeutic Activities, Neuromuscular Reeducation. Plan of Care Dates Plan of Care Start Date 05/25/24 Plan of Care End Date 08/07/24 Electronically Signed by: Shelia Smith, PT 05/26/24 1938 If you are in agreement with this Plan of Care, please return a signed and dated copy. I have reviewed this Plan of Care and certify that the skilled therapy services above are required to meet the patient?s needs. Physician Signature Date Printed Name and Credentials Clinical Instructor Signature Printed Name and Credentials
--- NOTE | 2024-06-01 19:12 | PT.OTN ---
Current Diagnoses Stiffness of unspecified hip, not elsewhere classified (06/01/24) Unspecified dyspareunia (06/01/24) Abnormal posture (06/01/24) Unspecified urinary incontinence (06/01/24) Physical Therapy Treatment Note PT-OP-A Visit Information Start: 05/24/24 19:28 Freq: Status: Active Protocol: Document 06/01/24 09:04 LRN (Rec: 06/01/24 09:49 LRN [id number]) Out-Patient Physical Therapy Visit Information Visit Information Visit Type Treatment Note Visit Start Time 09:04 Visit Stop Time 09:45 Visit Number 05/13 Evaluation Information Evaluation Date 05/25/24 Precautions Precautions Knee surgeries, (R Quad tendon rupture - 2019 repair). Pelvic instability treated @ [facility], Chiropractor treatments - 2019 or 2020 for 6 months rehab. PT-OP-B Current Condition Start: 05/24/24 19:28 Freq: Status: Active Protocol: Document 05/25/24 08:00 LRN (Rec: 05/25/24 09:03 LRN [id number]) Current Condition History of Current Condition Onset Date 9 months ago Current Complaints Urinary leakage with an urge and occasionally with sneeze. History of Current Condition Several months ago onset of incontinence, used to be with sneezing, but now has urgent onset to urinate with leakage getting up in the middle of the night or walking to the bathroom. Her triggers are running water, washing of hands. Pt reports pain with intercourse. Pt moved from [place] 8 yrs ago. She does pilates once a week with online instructors in [place]. States she does a kegels with inhale, and does Urethral, vaginal and anal kegels. Pt is with no children, no pregnancies. Prior Treatments and Tests None. Treatment Goals Patient/Caregiver Goals Pt goals: Hold her urine and quit wearing pads all the time. Personal Factors Other Personal Factors That May Effect Hx of R Quad tendon re- Therapy/Recovery attached, L ACL rpr - in her 30's, arthritis of knees, controlled HBP, does pilates 1x/wk. . PT-OP-C Subjective Start: 05/24/24 19:28 Freq: Status: Active Protocol: Document 06/01/24 09:04 LRN (Rec: 06/01/24 09:49 LRN [id number]) OP-PT Subjective Patient Comments Patient Comments States she did her bladder diary and learned when she has to go she has to go. PT-OP-I Pelvic Floor Start: 05/24/24 19:28 Freq: Status: Active Protocol: Document 05/25/24 08:00 LRN (Rec: 05/25/24 09:03 LRN [id number]) Pelvic Floor Assessment Urine Pelvic Floor Surgery No Urinary Symptoms Urge Sensation Leakage Cause Sneeze,Urge Other Leakage Causes Small with sneeze. Large if wait too long. Leaks Per Day 0-4 Voiding Frequency every other hour (~8-10x/day) Nocturia 1-2x/night Pads Used In 24 Hours 1 Poise pad Urine Pad Type Panty Liner Bowel Bowel Symptoms Uncontrolled Flatulence Bowel Movement Frequency 1/day [place] Stool Chart Comments Type 3,4 Pelvic Clock Pelvic Clock 3-6 Tightness Pelvic Clock 6-9 Tightness Prolapse Urethrocele Grade 2 Perineal Descent Resting Absent Bearing Present Contraction Ability Manual Muscle Testing Left 2 Manual Muscle Testing Right 2 Manual Muscle Testing Anterior 1 Manual Muscle Testing Posterior 2 Muscle Endurance (Seconds) 3 Number of Quick Contractions In 10 5 Seconds Comments Pelvic Floor Comments Weak contraction with slow release. Hyper tonicity 3-9 of PF clock. Pt reporting pain with intercourse. PT-OP-J Posture/Palpation/Skin Start: 05/24/24 19:28 Freq: Status: Active Protocol: Document 05/25/24 08:00 LRN (Rec: 05/25/24 09:03 N [id number]) Posture Evaluation Position Standing Thorax Posture Neutral L-Spine Posture Shifted Left Shoulder Posture (L) Elevated Arm Posture (L) Internally Rotated,(R) Internally Rotated Pelvis Posture (R) Rotated Anterior,(L) PSIS Posterior,(L) ASIS Posterior,( R) ASIS Inferior Knee Posture (L) Genu Valgus,(R) Genu Valgus Foot Arch (L) High Arch,(R) High Arch Comments Posture Comments Valgus L>R, R hammertoe, R arch higher than L, head shifted L, Dowagers Hump, Sacrum in extension (flattened ), L innominate in neutral. PT-OP-K Range of Motion Start: 05/24/24 19:28 Freq: Status: Active Protocol: Document 05/25/24 08:00 LRN (Rec: 05/25/24 09:03 LRN [id number]) Lumbar Spine Range of Motion Lumbar Spine Active Degrees Testing Position Standing Flexion 60 Extension 20 Rotation Left 15 Rotation Right 10 Lateral Flexion Left 15 Lateral Flexion Right 10 Hip Goniometric Range of Motion Hip Right Passive Testing Position Supine Internal Rotation 30 External Rotation 30 Left Passive Testing Position Supine Internal Rotation 20 External Rotation 30 PT-OP-M Strength Start: 05/24/24 19:28 Freq: Status: Active Protocol: Document 05/25/24 08:00 LRN (Rec: 05/25/24 09:03 LRN [id number]) Trunk Strength Trunk Manual Muscle Testing Core Stabilization Lacks mildly rotational strength Hip Strength Hip Manual Muscle Testing Right Extension (S1) 3 Fair Comments Strength is 5/5 except as indicated above. Left Extension (S1) 3 Fair External Rotation 4 Good Comments Strength is 5/5 except as indicated above. PT-OP-Q Treatments Start: 05/24/24 19:28 Freq: Status: Active Protocol: Document 06/01/24 09:04 LRN (Rec: 06/01/24 09:49 LRN [id number]) Therapeutic Exercises Supine Exercises Hip AD stretch Side bilateral Reps/Minutes 3' Hamstring/LE neural glide Side bilateral Reps/Minutes 4' Happy Baby Pose Reps/Minutes 3' Manual Therapy Treatment Consent Patient gave verbal consent for manual Yes treatment Soft Tissue Mobilization Hip AD's Body Location Danny Hip AD's Mobilization Type Other Intensity/Depth Moderate Body Position Supine Self-Care/Home Management Treatment Education Other Education Reviewed Bladder dairy and discussed fluid intake and types of fluid intake, urinary voiding frequency, & voiding times, times between voids and voiding times, nighttime voiding frequency, and bladder irritants. Activities Self-Care/Home Management Activities Issued & reviewed Handout: Urge deference technique/ Bladder retraining. Happy Baby & Pelvic Floor Lengthening Pose, and Hamstring/LEneural stretch, Hip AD stretch. PT-OP-T Assessment and Plan Start: 05/24/24 19:28 Freq: Status: Active Protocol: Document 06/01/24 09:04 LRN (Rec: 06/01/24 09:49 LRN [id number]) Physical Therapy Assessment Goals Three Impairment Stress urinary incontinence due to tight PF Short Term Goal (STG) Pt will be able to relax her PF with use of deep breathing and PF stretching (if needed) to decrease pain with intercourse. [facility] Goal (LTG) No urinary leakage with a sneeze. LTG Duration 08/07/24 Two Impairment Urge urinary incontinence at nighttime and w/strong urge Short Term Goal (STG) Pt will be educated in urge deference technique and will be able to maintain continence with a strong urge from triggers of running water or washing hands. 06/01/24: Handout: Urge deference technique/Bladder retraining. STG Duration 06/04/24 progressed 06/01/24 [facility] Goal (LTG) Pt will be able to remain continent while walking to the bathroom with an urge and at nighttime to eliminate the use of incontinence pads. LTG Duration 08/07/24 One Impairment Pt lacks appropriate self care HEP. Short Term Goal (STG) Education and pt able to demonstrate proper methods for coordinating breathing with exercise and PF contractions. STG Duration 06/25/24 Review Appraiser Goal (LTG) Pt will be independent with a self care HEP of PF stretching & relaxation, as needed PF strengthening & core rotational strengthening and hip ROM (ER/IR/PSLR) exercises . 06/01/24: HEP: Happy Baby & Pelvic Floor Lengthening Pose, and Hamstring/LEneural stretch, Hip AD stretch. LTG Duration 08/07/24 progressed 06/01/24 Assessment Summary Assessment Pt is a 63 yo female with mixed urinary incontinence, due to PF/hip (rotational, Hamstring) tightness and poor fluid management. Today, per bladder diary review (2 day diary) it shows her fluid intake is mostly coffee, tea, 1 beer and reportedly carbonated drinks; water intake is ~ one 16 oz drink during the day. She is voiding frequently and leaked 1x with sneeze. Frequency of voiding appears to be her main dysfunction that will require pt behavior modification and bladder retraining, secondary PF strengthening of aggrevator ( sneeze). Physical Therapy Plan Frequency and Duration Frequency of Treatment 1x/Week Duration of treatment (weeks) 10 Plan of Care Start Date 05/25/24 Plan of Care End Date 08/07/24 Next Visit Focus/Plan Next Note Type Treatment Note Next Visit Plan Next: Assess changes to pt's behavior regarding types of fluid intake, times between voids and voiding times, and discuss ?just in case? voiding and for changes in urinary voiding frequency, & nighttime voiding frequency with use of urge deference technique. Bladder retraining and PF strengthening quick contractions for aggrevators. PF Vemg assessment and relaxation training. Education: PF relaxation, wand stretching and stretch ex 's. Coordination of proper breaths with ADLs, transfers, body mechanics and exercise. Hip stretch (IR L>R, ER danny). PF relaxation, f/b strengthening. POC: Pt education, Manual therapy. Biofeedback with vaginal sensor for PF awareness and relaxation, Therapeutic Exercises, Therapeutic Activities, Neuromuscular Reeducation.
--- NOTE | 2024-06-22 17:48 | PT.OTN ---
Current Diagnoses Stiffness of unspecified hip, not elsewhere classified (06/22/24) Unspecified dyspareunia (06/22/24) Abnormal posture (06/22/24) Unspecified urinary incontinence (06/22/24) Physical Therapy Treatment Note PT-OP-A Visit Information Start: 05/24/24 19:28 Freq: Status: Active Protocol: Document 06/22/24 07:33 LRN (Rec: 06/22/24 08:19 LRN Laptop) Out-Patient Physical Therapy Visit Information Visit Information Visit Type Progress Note Visit Start Time 07:33 Visit Stop Time 08:16 Visit Number 06/10 (PN) Evaluation Information Evaluation Date 05/25/24 Precautions Precautions Knee surgeries, (R Quad tendon rupture - 2019 repair). Pelvic instability treated @ [facility], Chiropractor treatments - 2019 or 2020 for 6 months rehab. PT-OP-B Current Condition Start: 05/24/24 19:28 Freq: Status: Active Protocol: Document 05/25/24 08:00 LRN (Rec: 05/25/24 09:03 LRN [id number]) Current Condition History of Current Condition Onset Date 9 months ago Current Complaints Urinary leakage with an urge and occasionally with sneeze. History of Current Condition Several months ago onset of incontinence, used to be with sneezing, but now has urgent onset to urinate with leakage getting up in the middle of the night or walking to the bathroom. Her triggers are running water, washing of hands. Pt reports pain with intercourse. Pt moved from [place] 8 yrs ago. She does pilates once a week with online instructors in [place]. States she does a kegels with inhale, and does Urethral, vaginal and anal kegels. Pt is with no children, no pregnancies. Prior Treatments and Tests None. Treatment Goals Patient/Caregiver Goals Pt goals: Hold her urine and quit wearing pads all the time. Personal Factors Other Personal Factors That May Effect Hx of R Quad tendon re- Therapy/Recovery attached, L ACL rpr - in her 30's, arthritis of knees, controlled HBP, does pilates 1x/wk. . PT-OP-C Subjective Start: 05/24/24 19:28 Freq: Status: Active Protocol: Document 06/22/24 07:33 LRN (Rec: 06/22/24 08:19 LRN Laptop) OP-PT Subjective Patient Comments Patient Comments Bladder leakage is almost nothing using the urge deference technique. PT-OP-I Pelvic Floor Start: 05/24/24 19:28 Freq: Status: Active Protocol: Document 05/25/24 08:00 LRN (Rec: 05/25/24 09:03 LRN [id number]) Pelvic Floor Assessment Urine Pelvic Floor Surgery No Urinary Symptoms Urge Sensation Leakage Cause Sneeze,Urge Other Leakage Causes Small with sneeze. Large if wait too long. Leaks Per Day 0-4 Voiding Frequency every other hour (~8-10x/day) Nocturia 1-2x/night Pads Used In 24 Hours 1 Poise pad Urine Pad Type Panty Liner Bowel Bowel Symptoms Uncontrolled Flatulence Bowel Movement Frequency 1/day [place] Stool Chart Comments Type 3,4 Pelvic Clock Pelvic Clock 3-6 Tightness Pelvic Clock 6-9 Tightness Prolapse Urethrocele Grade 2 Perineal Descent Resting Absent Bearing Present Contraction Ability Manual Muscle Testing Left 2 Manual Muscle Testing Right 2 Manual Muscle Testing Anterior 1 Manual Muscle Testing Posterior 2 Muscle Endurance (Seconds) 3 Number of Quick Contractions In 10 5 Seconds Comments Pelvic Floor Comments Weak contraction with slow release. Hyper tonicity 3-9 of PF clock. Pt reporting pain with intercourse. PT-OP-J Posture/Palpation/Skin Start: 05/24/24 19:28 Freq: Status: Active Protocol: Document 05/25/24 08:00 LRN (Rec: 05/25/24 09:03 LRN [id number]) Posture Evaluation Position Standing Thorax Posture Neutral L-Spine Posture Shifted Left Shoulder Posture (L) Elevated Arm Posture (L) Internally Rotated,(R) Internally Rotated Pelvis Posture (R) Rotated Anterior,(L) PSIS Posterior,(L) ASIS Posterior,( R) ASIS Inferior Knee Posture (L) Genu Valgus,(R) Genu Valgus Foot Arch (L) High Arch,(R) High Arch Comments Posture Comments Valgus L>R, R hammertoe, R arch higher than L, head shifted L, Dowagers Hump, Sacrum in extension (flattened ), L innominate in neutral. PT-OP-K Range of Motion Start: 05/24/24 19:28 Freq: Status: Active Protocol: Document 05/25/24 08:00 LRN (Rec: 05/25/24 09:03 LRN [id number]) Lumbar Spine Range of Motion Lumbar Spine Active Degrees Testing Position Standing Flexion 60 Extension 20 Rotation Left 15 Rotation Right 10 Lateral Flexion Left 15 Lateral Flexion Right 10 Hip Goniometric Range of Motion Hip Right Passive Testing Position Supine Internal Rotation 30 External Rotation 30 Left Passive Testing Position Supine Internal Rotation 20 External Rotation 30 PT-OP-M Strength Start: 05/24/24 19:28 Freq: Status: Active Protocol: Document 05/25/24 08:00 LRN (Rec: 05/25/24 09:03 LRN [id number]) Trunk Strength Trunk Manual Muscle Testing Core Stabilization Lacks mildly rotational strength Hip Strength Hip Manual Muscle Testing Right Extension (S1) 3 Fair Comments Strength is 5/5 except as indicated above. Left Extension (S1) 3 Fair External Rotation 4 Good Comments Strength is 5/5 except as indicated above. PT-OP-Q Treatments Start: 05/24/24 19:28 Freq: Status: Active Protocol: Document 06/22/24 07:33 LRN (Rec: 06/22/24 08:19 LRN Laptop) Therapeutic Exercises Supine Exercises Deep Breathing Reps/Minutes 3' Comments V. cuing for 6 sec in/out breath. Hip AD stretch Side bilateral Reps/Minutes 3' Hamstring/LE neural glide Side bilateral Reps/Minutes 4' Comments Extra time to do ex correctly. Happy Baby Pose Reps/Minutes 3' Sitting Exercises SL hip AD stretch Side bilateral Reps/Minutes 3' Deep BReathing Reps/Minutes 2' Comments Review of pt's deep breathing with yoga and scuba diving - same Other Exercises Child's Pose Reps/Minutes 3' Comments Extra time to determine max abel stretch. Urge Deference Training Reps/Minutes 10' Therapeutic Activity Therapeutic Activity Transfer training w/core pressure relief Name stand<>sit<>sup Reps/Minutes 8' Self-Care/Home Management Treatment Activities Self-Care/Home Management Activities Issued & reviewed HEP: Diaphragmatic/Deep breathing, Transfer with Kegel/breath. Issued & reviewed handouts: Urge deference training & Tips for PF relaxation. PT-OP-T Assessment and Plan Start: 05/24/24 19:28 Freq: Status: Active Protocol: Document 06/22/24 07:33 LRN (Rec: 06/22/24 08:19 LRN Laptop) Physical Therapy Assessment Rehab Potential Rehabilitation Potential Good Evaluation Complexity Number of Personal Factors/Comorbidities 1-2 Number of Body Systems Impaired 4 or More Clinical Presentation at Evaluation Evolving Impairments Impairments Activity Tolerance,Posture,ROM ,Strength Other Impairments PF ms tightness Goals Three Impairment Stress urinary incontinence due to tight PF Short Term Goal (STG) Pt will be able to relax her PF with use of deep breathing and PF stretching (if needed) to decrease pain with intercourse. 06/22/24: HEP: Deep breathing STG Duration 06/04/24 progressed 06/22/24 Long-Term Goal (LTG) No urinary leakage with a sneeze. LTG Duration 08/07/24 Two Impairment Urge urinary incontinence at nighttime and w/strong urge Short Term Goal (STG) Pt will be educated in urge deference technique and will be able to maintain continence with a strong urge from triggers of running water or washing hands. 06/01/24: Handout: Urge deference technique/Bladder retraining. STG Duration 06/04/24 progressed 06/01/24 [place] Goal (LTG) Pt will be able to remain continent while walking to the bathroom with an urge and at nighttime to eliminate the use of incontinence pads. LTG Duration 08/07/24 One Impairment Pt lacks appropriate self care HEP. Short Term Goal (STG) Education and pt able to demonstrate proper methods for coordinating breathing with exercise and PF contractions. 06/22/24: HEP: Coordinated breathing/kegel with transfers . STG Duration 06/25/24 progressed 06/22/24 (need coord breath/kegel w/ex) [place] Goal (LTG) Pt will be independent with a self care HEP of PF stretching & relaxation, as needed PF strengthening & core rotational strengthening and hip ROM (ER/IR/PSLR) exercises . 06/01/24: HEP: Happy Baby & Pelvic Floor Lengthening Pose, and Hamstring/LE neural stretch, Hip AD stretch. 06/22/24: HEP: Diaphragmatic /Deep breathing for PF relaxation. LTG Duration 08/07/24 progressed 06/01/24 Assessment Summary Assessment Pt is a 63 yo female with mixed urinary incontinence. Today, pt show's + response to education and training of urge deference training with reduction in urinary leakage and increase in times between voids to every 2-4 hours with addtion of water before drinking coffee and reduction of voiding just in case. Much cuing for HS/LE neural glide. Pt not doing HEP correctly, but was able to do correctly after training. It is expected that the pt's STG #3 will be achieved by . The pt will benefit from skilled physical therapy for PF rehabilitation of pt education, manual therapy, therapeutic ex, therapeutic activity, modalities ( Biofeedback, E-stim), PF/core/ hip ex's and neuro reeducation for PF relaxation and coordination of PF contract/ relax in isolation of abdominal muscles. Physical Therapy Plan Frequency and Duration Frequency of Treatment 1x/Week Duration of treatment (weeks) 10 Plan of Care Start Date 05/25/24 Plan of Care End Date 08/07/24 Therapeutic Interventions Therapeutic Interventions Home Exercise Program,Manual Therapy,Neuromuscular Re- education,Self-Care/Home Management,Soft Tissue Mobilization,Therapeutic Activities,Therapeutic Exercises Modalities Biofeedback,Electric Stimulation Next Visit Focus/Plan Next Note Type Treatment Note Next Visit Plan Next: Assess changes voiding times, and nighttime voiding frequency. Check for core pressure mgmt with transfers. Discuss ?just in case? voiding with further Bladder retraining if needed. Review/practice PF strengthening quick contractions for aggrevators. PF Vemg assessment of PF w/ substitute ms, and relaxation training. Education: PF relaxation, wand stretching and stretch ex 's. Coordination of proper breaths with ADLs, body mechanics and exercise. Hip stretch (IR L>R, ER dione). PF relaxation, f/b strengthening. POC: Pt education, Manual therapy. Biofeedback with vaginal sensor for PF awareness and relaxation, Therapeutic Exercises, Therapeutic Activities, Neuromuscular Reeducation.
--- NOTE | 2024-06-29 11:23 | PT.OTN ---
Current Diagnoses Stiffness of unspecified hip, not elsewhere classified (06/29/24) Unspecified dyspareunia (06/29/24) Abnormal posture (06/29/24) Unspecified urinary incontinence (06/29/24) Physical Therapy Treatment Note PT-OP-A Visit Information Start: 05/24/24 19:28 Freq: Status: Active Protocol: Document 06/29/24 09:02 LRN (Rec: 06/29/24 09:51 LRN [id number]) Out-Patient Physical Therapy Visit Information Visit Information Visit Type Treatment Note Visit Start Time 09:02 Visit Stop Time 09:43 Visit Number 4 (1 after PN) Evaluation Information Evaluation Date 05/25/24 Precautions Precautions Knee surgeries, (R Quad tendon rupture - 2019 repair). Pelvic instability treated @ [facility], Chiropractor treatments - 2019 or 2020 for 6 months rehab. PT-OP-B Current Condition Start: 05/24/24 19:28 Freq: Status: Active Protocol: Document 05/25/24 08:00 LRN (Rec: 05/25/24 09:03 LRN [id number]) Current Condition History of Current Condition Onset Date 9 months ago Current Complaints Urinary leakage with an urge and occasionally with sneeze. History of Current Condition Several months ago onset of incontinence, used to be with sneezing, but now has urgent onset to urinate with leakage getting up in the middle of the night or walking to the bathroom. Her triggers are running water, washing of hands. Pt reports pain with intercourse. Pt moved from [place] 8 yrs ago. She does pilates once a week with online instructors in [place]. States she does a kegels with inhale, and does Urethral, vaginal and anal kegels. Pt is with no children, no pregnancies. Prior Treatments and Tests None. Treatment Goals Patient/Caregiver Goals Pt goals: Hold her urine and quit wearing pads all the time. Personal Factors Other Personal Factors That May Effect Hx of R Quad tendon re- Therapy/Recovery attached, L ACL rpr - in her 30's, arthritis of knees, controlled HBP, does pilates 1x/wk. . PT-OP-C Subjective Start: 05/24/24 19:28 Freq: Status: Active Protocol: Document 06/29/24 09:02 LRN (Rec: 06/29/24 09:51 LRN [id number]) OP-PT Subjective Patient Comments Patient Comments 1x huge sneeze with loss of urine. Requests this be the last visit due to financial reasons. No leakage trying to get to bathroom. Has understanding of deep breathing. MD has given her Lidocaine and estrogen for her PF pain. No urinary leakage with triggers of running water and washing hands. 3-4 hrs times between voids (except in morning due to medications), and doesn't get up as many times at night (0-1 times). Patient Questionnaires Pelvic Pain and Urgency/Frequency Patient Symptom Scale Pelvic Pain Score 8 PT-OP-I Pelvic Floor Start: 05/24/24 19:28 Freq: Status: Active Protocol: Document 06/29/24 09:02 LRN (Rec: 06/29/24 09:51 LRN [id number]) Pelvic Floor Assessment Contraction Ability Voluntary Contraction Weak Voluntary Relaxation Weak Manual Muscle Testing Left 2 Manual Muscle Testing Right 3 Manual Muscle Testing Anterior 3 Manual Muscle Testing Posterior 3 Number of Quick Contractions In 10 4 Seconds PT-OP-J Posture/Palpation/Skin Start: 05/24/24 19:28 Freq: Status: Active Protocol: Document 05/25/24 08:00 LRN (Rec: 05/25/24 09:03 LRN [id number]) Posture Evaluation Position Standing Thorax Posture Neutral L-Spine Posture Shifted Left Shoulder Posture (L) Elevated Arm Posture (L) Internally Rotated,(R) Internally Rotated Pelvis Posture (R) Rotated Anterior,(L) PSIS Posterior,(L) ASIS Posterior,( R) ASIS Inferior Knee Posture (L) Genu Valgus,(R) Genu Valgus Foot Arch (L) High Arch,(R) High Arch Comments Posture Comments Valgus L>R, R hammertoe, R arch higher than L, head shifted L, Dowagers Hump, Sacrum in extension (flattened ), L innominate in neutral. PT-OP-K Range of Motion Start: 05/24/24 19:28 Freq: Status: Active Protocol: Document 05/25/24 08:00 LRN (Rec: 05/25/24 09:03 N [id number]) Lumbar Spine Range of Motion Lumbar Spine Active Degrees Testing Position Standing Flexion 60 Extension 20 Rotation Left 15 Rotation Right 10 Lateral Flexion Left 15 Lateral Flexion Right 10 Hip Goniometric Range of Motion Hip Right Passive Testing Position Supine Internal Rotation 30 External Rotation 30 Left Passive Testing Position Supine Internal Rotation 20 External Rotation 30 PT-OP-M Strength Start: 05/24/24 19:28 Freq: Status: Active Protocol: Document 05/25/24 08:00 LRN (Rec: 05/25/24 09:03 LRN [id number]) Trunk Strength Trunk Manual Muscle Testing Core Stabilization Lacks mildly rotational strength Hip Strength Hip Manual Muscle Testing Right Extension (S1) 3 Fair Comments Strength is 5/5 except as indicated above. Left Extension (S1) 3 Fair External Rotation 4 Good Comments Strength is 5/5 except as indicated above. PT-OP-Q Treatments Start: 05/24/24 19:28 Freq: Status: Active Protocol: Document 06/29/24 09:02 LRN (Rec: 06/29/24 09:51 LRN [id number]) Therapeutic Exercises Supine Exercises PF Quick Supine Exercise Name Contractions for Superficial and deep muscles. Reps/Minutes 3' Lat Hip stretch Side bilateral Reps/Minutes 3' Piriformis stretch Supine Exercise Name knee to opp shoulder, ankle over knee > KTC Side bilateral Reps/Minutes 9' Comments Extra ttime takne to determin max abel stretch Deep Breathing Supine Exercise Name Verbal Review of when to use. Reps/Minutes 1' Hip AD stretch Side bilateral Reps/Minutes 3' Hamstring/LE neural glide Side bilateral Reps/Minutes 4' Comments Extra time to do ex correctly. Happy Baby Pose Reps/Minutes 3' Manual Therapy Treatment Soft Tissue Mobilization PF Body Location Superficial PF ms Mobilization Type Sustained Pressure Intensity/Depth Superficial Body Position Hooklying Self-Care/Home Management Treatment Activities Self-Care/Home Management Activities Issued Tips for PF Relaxation (Happy Baby Pose & Child's Pose stretch). Issued & reviewed HEP: Piriformis stretch in supine (2 types) and sit; and Lateral Hip Stretch. Issued Small Wand and I/S pt in safe and proper method to stretch her superficial PF ms from 3-9 of PF clock. PT-OP-T Assessment and Plan Start: 05/24/24 19:28 Freq: Status: Active Protocol: Document 06/29/24 09:02 LRN (Rec: 06/29/24 09:51 LRN [id number]) Physical Therapy Assessment Goals Three Impairment Stress urinary incontinence due to tight PF Short Term Goal (STG) Pt will be able to relax her PF with use of deep breathing and PF stretching (if needed) to decrease pain with intercourse. 06/22/24: HEP: Deep breathing. 06/29/24: Issued: Small wand for PF stretching w/ instructions on how to safely stretch PF external and internal tissues as needed. STG Duration 06/04/24 (06/29/24: PARTIALLY met goal, early DC) [employer] Goal (LTG) No urinary leakage with a sneeze. 06/29/24: Reviewed pt to contract before sneezing, coughing. LTG Duration 08/07/24 (06/29/24: NOT MET GOAL due to early DC). Two Impairment Urge urinary incontinence at nighttime and w/strong urge Short Term Goal (STG) Pt will be educated in urge deference technique and will be able to maintain continence with a strong urge from triggers of running water or washing hands. 06/01/24: Handout: Urge deference technique/Bladder retraining. 06/29/24: No longer leaking with triggers of running water or washing hands. STG Duration 06/04/24 (06/29/24: MET GOAL ) [employer] Goal (LTG) Pt will be able to remain continent while walking to the bathroom with an urge and at nighttime to eliminate the use of incontinence pads. 06/29/24: Not leaking while walking to bathroom, and no using incontinence pad at night and not much during the day. LTG Duration 08/07/24 (06/29/24: MET GOAL) One Impairment Pt lacks appropriate self care HEP. Short Term Goal (STG) Education and pt able to demonstrate proper methods for coordinating breathing with exercise and PF contractions. 06/22/24: HEP: Coordinated breathing/kegel with transfers . 06/29/24: Pt describes doing coordinated breathing with transfers and breathing with exercise. Pt was educated in how to relax her PF with deep breathing. STG Duration 06/25/24 (06/29/24: MET GOAL ) Residential Goal (LTG) Pt will be independent with a self care HEP of PF stretching & relaxation, as needed PF strengthening & core rotational strengthening and hip ROM (ER/IR/PSLR) exercises . 06/01/24: HEP: Happy Baby & Pelvic Floor Lengthening Pose, and Hamstring/LE neural stretch, Hip AD stretch. 06/22/24: HEP: Diaphragmatic /Deep breathing for PF relaxation. 06/29/24: HEP: Piriformis stretch in supine (2 types) and sit; and Lateral Hip Stretch. Issued Tips for PF Relaxation (Happy Baby Pose & Child's Pose stretch). Issued Small Wand and I/S pt in safe and proper method to stretch her superficial PF ms from 3-9 of PF clock. LTG Duration 08/07/24 (06/29/24: MET GOAL ) Assessment Summary Assessment Pt is a 63 yo female being seen for mixed urinary incontinence. She has greatly improved in her management of urge urinary incontinence and is not leaking with strong urge or triggers. Her stress urinary incontinence has also improved and she reports urinary leakage with a sneeze x 1 since last session. Her dyspareneuia persists, but she is now on estrogen; therefore it is expected with improved tissue health her pain will decrease over time and stretching to her PF. She was given a prescription of lidocaine that she felt was not helpful in alleviating her pain. Today she was issued a small wand for PF stretching no that her tissue health is better. Her superficial PF ms are tight and tender and have decreased ability to relax after contraction. After therapy today she had better awareness of PF relaxation after contraction. The pt is requesting discharge to her HEP due to financial reasons and understands that if she needs further physical therapy she will need a new referral to return. The pt did not meet all her goals due to early discharge at pt request. Physical Therapy Plan Discharge Physical Therapy Discharge Reasons Patient Request Discharge Comments See assessment above. Thank you for your referral. Pt has great potential to achieve her goals on her her self care program.
== END 2024-07-02 09:31 | disposition home or self-care (01) ==
LOC: PHYS 09:00
PROVIDERS: Family Provider Family Medicine; PCP Family Medicine; Referring Provider Family Medicine; Visit Provider Family Medicine
DX: R32 Unspecified urinary incontinence (principal); N94.10 Unspecified dyspareunia; M25.659 Stiffness of unspecified hip, not elsewhere classified; R29.3 Abnormal posture
CPT/HCPCS: 97110; 97140; 97162; 97530; 97535

== ENCOUNTER → 2024-06-30 08:04 | Outpatient (CLI) | payer OTHER, SELFPAY ==
[2024-06-30 09:23] LABS: Cholesterol 177 mg/dL (140-199); HDL Cholesterol 101 mg/dL (40-60); LDL Cholesterol Calculated 65 mg/dL (<100); Triglycerides 57 mg/dL (35-150)
[2024-06-30 09:27] LABS: Hemoglobin A1C% w Est Avg Glu 5.3 % (4.0-6.0)
[2024-07-01 14:08] LABS: Fecal Immunochemical Test Negative (Negative)
== END ==
PROVIDERS: Family Provider Family Medicine; PCP Family Medicine; Referring Provider Family Medicine; Visit Provider Family Medicine
DX: R73.03 Prediabetes (principal); Z12.39 Encounter for other screening for malignant neoplasm of breast; E78.5 Hyperlipidemia, unspecified
CPT/HCPCS: 36415; 80061; 82274; 83036